=== PATIENT | male | born 1960 | race Caucasian/White ===

== ENCOUNTER 2017-10-06 07:27 | Emergency (ER) | payer OTHER ==
[~2017-10-06] VITALS: Ht 172.7 cm; Wt 118.8 kg
[2017-10-06 07:33] VITALS: Ht 172.7 cm; Wt 118.8 kg
[2017-10-06 07:54] VITALS: BP 139/77
== END 2017-10-06 08:36 | disposition home or self-care (01) ==
LOC: ED 07:27
DX: G51.0 Bell's palsy (principal); I10 Essential (primary) hypertension; E78.00 Pure hypercholesterolemia, unspecified